=== PATIENT | female | born 1975 | race Caucasian/White ===

== ENCOUNTER 2021-03-04 15:18 | Outpatient (CLI) | payer OTHER | END 2021-03-04 15:19 | disposition home or self-care (01) | LOC: CSHLAB 15:18 | PROVIDERS: ATTEND Obstetrics & Gynecology | DX: Z01.812 Encounter for preprocedural laboratory examination (principal); Z20.822 Contact with and (suspected) exposure to COVID-19 | CPT/HCPCS: 85027; 86850; 86900; 86901; U0003; U0005 ==

== ENCOUNTER 2021-03-08 06:07 | Day surgery (SDC) | payer OTHER ==
[2021-03-04 17:46] LABS: Hemoglobin 13.4 g/dL (12.0-15.5); Mean Corpuscular HGB CONC 33.6 g/dL (32.0-36.0); Mean Corpuscular Volume 95.2 fl (81.6-98.3); Mean Platelet Volume 10.1 fl (7.4-10.4); Platelet Count 296 10x3/uL (150-450); RBC Distribution Width 14.7 % (11.5-14.5); Red Blood Cell (RBC) Count 4.19 10x6/uL (3.90-5.03); White Blood Cell (WBC) Count 8.1 10x3/uL (3.5-10.5)
[2021-03-05 13:56] LABS: SARS-CoV-2 PCR by NAA Not Detected (NotDetected)
[2021-03-07 10:40] VITALS: BMI 27.1
[2021-03-08] MEDS ORDERED: PROPOFOL 20 ML ONE (06:25)
[2021-03-08] MEDS ORDERED: Fentanyl 100 MCG/2 ML VIAL ONE ×2 (06:25→07:55)
[2021-03-08] MEDS ORDERED: Midazolam HCl 2 mg/2 ml Vial ONE (06:25)
[2021-03-08] MEDS ORDERED: Dexamethasone 20 MG/5 ML VIAL ONE (06:26)
[2021-03-08] MEDS ORDERED: Lidocaine 1% PF 5 ML VIAL ONE (06:26)
[2021-03-08] MEDS ORDERED: Ondansetron PF 4 MG/2 ML Vial ONE (06:26)
[2021-03-08] MEDS ORDERED: Lidocaine 1% MPF 2 ML VIAL ONE (06:36)
== END 2021-03-08 08:47 | disposition home or self-care (01) ==
LOC: CSHSDC 06:07
PROVIDERS: ATTEND Obstetrics & Gynecology
PROC: 0UJD8ZZ Inspection of Uterus and Cervix, Via Natural or Artificial Opening Endoscopic (ICD-10-PCS; principal; 2021-03-08)
PROC: 0UDB7ZX Extraction of Endometrium, Via Natural or Artificial Opening, Diagnostic (ICD-10-PCS; principal; 2021-03-08)
DX: N84.1 Polyp of cervix uteri (principal); N84.0 Polyp of corpus uteri; N95.0 Postmenopausal bleeding; N95.1 Menopausal and female climacteric states; I10 Essential (primary) hypertension; K21.9 Gastro-esophageal reflux disease without esophagitis; M35.00 Sjogren syndrome, unspecified; Z79.890 Hormone replacement therapy; Z79.899 Other long term (current) drug therapy; Z91.040 Latex allergy status; Z91.048 Other nonmedicinal substance allergy status
CPT/HCPCS: 36415; 85027; 86850; 86900; 86901; 88305; J0690; J1100; J2250; J2405; J2704; J3010; U0003; U0005

== ENCOUNTER 2021-05-23 12:53 | Outpatient (CLI) | payer OTHER ==
[2021-05-23 14:38] LABS: Hemoglobin 12.2 g/dL (12.0-15.5); Mean Corpuscular Hemoglobin 31.6 pg (27.0-33.0); Mean Corpuscular Volume 95.9 fl (81.6-98.3); Platelet Count 278 10x3/uL (150-450); RBC Distribution Width 13.8 % (11.5-14.5); Red Blood Cell (RBC) Count 3.86 10x6/uL (3.90-5.03); White Blood Cell (WBC) Count 6.8 10x3/uL (3.5-10.5)
[2021-05-23 15:42] LABS: BHCG - Serum POSITIVE (NEGATIVE); Pregs Control Background? CLEAR/WHITE (CLR/WHITE); Pregs Control Bar Appear? YES (CONTROL BAR)
[2021-05-23 20:29] LABS: SARS-CoV-2 PCR by NAA Not Detected (NotDetected)
== END 2021-05-23 12:54 | disposition home or self-care (01) ==
LOC: CSHLAB 12:53
PROVIDERS: ATTEND Obstetrics & Gynecology
DX: Z01.812 Encounter for preprocedural laboratory examination (principal); Z20.822 Contact with and (suspected) exposure to COVID-19
CPT/HCPCS: 84702; 84703; 85027; 86850; 86900; 86901; 93005; 93010; U0003; U0005

== ENCOUNTER 2021-05-26 05:41 | Observation (INO) | payer OTHER ==
[2021-05-23 14:38] LABS: Hemoglobin 12.2 g/dL (12.0-15.5); Mean Corpuscular Hemoglobin 31.6 pg (27.0-33.0); Mean Corpuscular Volume 95.9 fl (81.6-98.3); Platelet Count 278 10x3/uL (150-450); RBC Distribution Width 13.8 % (11.5-14.5); Red Blood Cell (RBC) Count 3.86 10x6/uL (3.90-5.03); White Blood Cell (WBC) Count 6.8 10x3/uL (3.5-10.5)
[2021-05-23 15:42] LABS: BHCG - Serum POSITIVE (NEGATIVE); Pregs Control Background? CLEAR/WHITE (CLR/WHITE); Pregs Control Bar Appear? YES (CONTROL BAR)
[2021-05-23 20:29] LABS: SARS-CoV-2 PCR by NAA Not Detected (NotDetected)
[2021-05-24 11:27] VITALS: BMI 27.1
[2021-05-26] MEDS ORDERED: Lidocaine 1% MPF 2 ML VIAL ONE (06:31)
[2021-05-26] MEDS ORDERED: EPINEPHrine 1 MG/ML AMP ONE (06:32)
[2021-05-26] MEDS ORDERED: Bupivacaine PF 0.5% 30 ML VIAL ONE (06:32)
[2021-05-26] MEDS ORDERED: PROPOFOL 20 ML ONE ×2 (07:00→07:13)
[2021-05-26] MEDS ORDERED: Fentanyl 100 MCG/2 ML VIAL ONE ×4 (07:00→09:38)
[2021-05-26] MEDS ORDERED: Glycopyrrolate 0.2 MG/ML 5 ML SYRINGE ONE (07:13)
[2021-05-26] MEDS ORDERED: Dexamethasone 4 mg/ml Vial ONE (07:13)
[2021-05-26] MEDS ORDERED: Ondansetron PF 4 MG/2 ML Vial ONE (07:13)
[2021-05-26] MEDS ORDERED: Phenylephrine 10 MG/ML VIAL ONE (07:15)
[2021-05-26] MEDS ORDERED: PHENYLEPHRINE-NS 100 MCG/ML 10 ML SYRINGE ONE (07:16)
[2021-05-26] MEDS ORDERED: Lisinopril 5 MG TAB PO SCH (12:15)
[2021-05-26] MEDS ORDERED: PATIENT'S HOME MEDICATION PO PRN (13:50)
[2021-05-26] MEDS ORDERED: Pilocarpine 5 MG TAB PO SCH (15:00)
[2021-05-26] MEDS: Methocarbamol 500 MG TAB PO SCH ×2 (15:38→21:33)
[2021-05-26] MEDS ORDERED: Lisinopril 10 MG TAB PO SCH (21:00)
[2021-05-26] MEDS ORDERED: Loratadine 10 MG TAB PO SCH (21:00)
[2021-05-26] MEDS: cycloSPORINE, Modified 25 MG CAP PO SCH (21:28)
[2021-05-26] MEDS ORDERED: fentaNYL Citrate/PF PCA SYRING 50 ML IV SCH (23:45)
[2021-05-26] MEDS ORDERED: Naloxone HCl 0.4 mg/ml Vial IV PRN (23:55)
[2021-05-27 06:15] LABS: Hemoglobin 12.1 g/dL (12.0-15.5); Mean Corpuscular HGB CONC 32.9 g/dL (32.0-36.0); Mean Corpuscular Hemoglobin 31.8 pg (27.0-33.0); Mean Corpuscular Volume 96.8 fl (81.6-98.3); Mean Platelet Volume 9.3 fl (7.4-10.4); Platelet Count 237 10x3/uL (150-450); RBC Distribution Width 14.1 % (11.5-14.5); White Blood Cell (WBC) Count 11.2 10x3/uL (3.5-10.5)
[2021-05-27 07:55] VITALS: BP 117/79; TEMP 98.5
[2021-05-27] MEDS ORDERED: Acetaminophen/Codeine 30-300mg Tablet PO SCH (08:45)
[2021-05-27] MEDS: Methocarbamol 500 MG TAB PO SCH (08:54)
[2021-05-27] MEDS: cycloSPORINE, Modified 25 MG CAP PO SCH (08:55)
[2021-05-27] MEDS ORDERED: Pilocarpine 5 MG TAB PO SCH (09:00)
[2021-05-27] MEDS ORDERED: Fluticasone Propionate Nasal Spray 16 gm Bottle NASAL SCH (09:00)
== END 2021-05-27 09:50 | disposition home or self-care (01) ==
LOC: CSHSDC 05:41 → CSHPED 11:02 → INTOOBSV 11:02
PROVIDERS: ADMIT Obstetrics & Gynecology; ATTEND Obstetrics & Gynecology
PROC: 0UT97ZZ Resection of Uterus, Via Natural or Artificial Opening (ICD-10-PCS; principal; 2021-05-27)
PROC: 0UB67ZZ Excision of Left Fallopian Tube, Via Natural or Artificial Opening (ICD-10-PCS; 2021-05-27)
DX: N95.0 Postmenopausal bleeding (principal); T38.5X5A Adverse effect of other estrogens and progestogens, initial encounter; D25.9 Leiomyoma of uterus, unspecified; I10 Essential (primary) hypertension; M35.00 Sjogren syndrome, unspecified; Z85.51 Personal history of malignant neoplasm of bladder; Z79.890 Hormone replacement therapy; Z79.899 Other long term (current) drug therapy; Z88.7 Allergy status to serum and vaccine; Z91.040 Latex allergy status; Z91.048 Other nonmedicinal substance allergy status; Z20.822 Contact with and (suspected) exposure to COVID-19; Z01.812 Encounter for preprocedural laboratory examination
CPT/HCPCS: 84702; 84703; 85027; 86850; 86900; 86901; 88307; 93005; 93010; J0171; J0690; J1100; J2370; J2405; J2704; J3010; S0020; U0003; U0005

== ENCOUNTER 2025-03-26 14:27 | Outpatient (CLI) | payer OTHER | END 2025-03-26 14:28 | disposition home or self-care (01) | LOC: CSHRAD 14:27 | PROVIDERS: ATTEND Student in an Organized Health Care Education/Training Program | DX: Z86.018 Personal history of other benign neoplasm (principal); C67.9 Malignant neoplasm of bladder, unspecified ==